=== PATIENT | female | born 1940 | race Caucasian/White ===

== ENCOUNTER 2018-04-24 06:37 | Day surgery (SDC) | payer MEDICARE, OTHER ==
[~2018-04-24] VITALS: Ht 170.2 cm; Wt 84.2 kg
[2018-04-24 07:05] VITALS: BP 142/57
[2018-04-24] MEDS ORDERED: LIDOcaine 1% 30ml preserv. free vial IJ ONE (07:05)
[2018-04-24] MEDS ORDERED: MIDAZolam 5mg/5ml vial IV PRN (07:05)
[2018-04-24] MEDS ORDERED: normal saline 1000ml 1,000 ML IV SCH (07:10)
[2018-04-24] MEDS ORDERED: LIDOcaine 1% 30ml preserv. free vial SQ ONE (07:35)
[2018-04-24] MEDS ORDERED: FURO-150 PO (07:45)
[2018-04-24] MEDS ORDERED: CARV-50 PO (07:45)
[2018-04-24] MEDS ORDERED: ASPI81TA52 PO (07:45)
[2018-04-24] MEDS ORDERED: LEVO50TA8 PO (07:45)
[2018-04-24] MEDS ORDERED: RANI150T44 PO (07:45)
[2018-04-24] MEDS ORDERED: HYDR200T84 PO (07:45)
[2018-04-24] MEDS ORDERED: LOSA25TA96 PO (07:45)
[2018-04-24 07:52] LABS: ALANINE AMINOTRANSFERASE 13 U/L (12-78); ALBUMIN 1.6 G/DL (3.4-5.0); ALBUMIN/GLOBULIN RATIO 0.4 (1.1-1.5); ALKALINE PHOSPHATASE 106 IU/L (46-116); ANION GAP 10 (8-16); ASPARTATE AMINO TRANSFERASE 14 U/L (10-37); BILIRUBIN,TOTAL 0.3 MG/DL (0.1-1.0); BLOOD UREA NITROGEN 33 MG/DL (7-18); BUN/CREATININE RATIO 15.8 (6.6-38.0); CALCIUM 8.5 MG/DL (8.5-10.1); CHLORIDE 103 MMOL/L (99-107); CREATININE 2.09 MG/DL (0.40-0.90); GLUCOSE 81 MG/DL (70-104); POTASSIUM 3.8 MMOL/L (3.5-5.1); SODIUM 139 MMOL/L (135-145); TOTAL CARBON DIOXIDE 26.5 MMOL/L (24-32); TOTAL PROTEIN 5.7 G/DL (6.4-8.2); eGFR 23 ML/MIN
[2018-04-24 08:00] LABS: PARTIAL THROMBOPLASTIN TIME 29 SECONDS (22-32); PROTHROMBIN TIME 10.7 SECONDS (9.0-12.0)
[2018-04-24 08:49] LABS: BASOPHILS % (AUTO) 0.2 % (0-1); EOSINOPHILS # (AUTO) 0.3 X10'3 (0-0.9); EOSINOPHILS % (AUTO) 2.2 % (0-6); HEMATOCRIT 23.6 % (35.0-45.0); LYMPHOCYTES # (AUTO) 1.2 X10'3 (1.1-4.8); LYMPHOCYTES % (AUTO) 9.6 % (21-51); MEAN CORPUSCULAR HEMOGLOBIN 29.2 PG (27.0-31.0); MEAN CORPUSCULAR HGB CONC 33.9 % (33.0-36.5); MEAN CORPUSCULAR VOLUME 86.2 FL (78-98); MONOCYTES % (AUTO) 7.9 % (2-12); NEUTROPHILS # (AUTO) 9.6 X10'3 (1.8-7.7); NEUTROPHILS % (AUTO) 80.1 % (42-75); RED BLOOD COUNT 2.73 X10'6 (4.20-5.60); RED CELL DISTRIBUTION WIDTH 15.9 % (11.5-14.5)
[2018-04-24 09:19] LABS: WHITE BLOOD COUNT 7.1 X10'3 (4.5-11.0)
[2018-04-24 09:20] LABS: MEAN PLATELET VOLUME 7.5 FL (7.4-10.4); PLATELET COUNT 218 X10'3 (140-440)
[2018-04-24 11:23] LABS: PLATELET FUNCTION (ADP) 144 SECONDS (63-104)
== END 2018-04-24 11:45 | disposition home or self-care (01) ==
LOC: SSTAY O 06:37
PROVIDERS: ATTEND Internal Medicine Critical Care Medicine
DX: N18.3 Chronic kidney disease, stage 3 (moderate) (principal); Z53.8 Procedure and treatment not carried out for other reasons; E55.9 Vitamin D deficiency, unspecified; I50.9 Heart failure, unspecified; M19.90 Unspecified osteoarthritis, unspecified site; E03.9 Hypothyroidism, unspecified; Z98.890 Other specified postprocedural states; Z98.41 Cataract extraction status, right eye; Z98.42 Cataract extraction status, left eye; Z79.899 Other long term (current) drug therapy; Z79.82 Long term (current) use of aspirin
CPT/HCPCS: 36415; 80053; 85025; 85576; 85610; 85730; 86885; 86900; 86901; 86920; J7030; J2250; J3490

== ENCOUNTER 2018-04-26 05:48 | Day surgery (SDC) | payer MEDICARE, OTHER ==
[2018-04-26] VITALS (16 sets, daily range): BP systolic 113–148; BP diastolic 31–85
[~2018-04-26] VITALS: Ht 170.2 cm; Wt 84.3 kg
[~2018-04-26 05:48] MED LIST: ASPI81TA52 PO; CARV-50 PO; FURO-150 PO; HYDR200T84 PO; LEVO50TA8 PO; LOSA25TA96 PO; RANI150T44 PO
[2018-04-26] MEDS ORDERED: DESMOPRESSIN IV ONE (06:00)
[2018-04-26] MEDS ORDERED: NORMAL SALINE IV ONE (06:00)
[2018-04-26] MEDS ORDERED: MIDAZolam 5mg/5ml vial IV ONE (06:35)
[2018-04-26] MEDS ORDERED: normal saline 1000ml 1,000 ML IV SCH (06:40)
[2018-04-26] MEDS ORDERED: LIDOcaine 1% (10mg/ml)/PF 5ml amp IJ ONE (07:15)
[2018-04-26 09:12] LABS: HEMATOCRIT 22.8 % (35.0-45.0); HEMOGLOBIN 7.7 g/dl (12.0-16.0); MEAN CORPUSCULAR HEMOGLOBIN 28.9 PG (27.0-31.0); MEAN CORPUSCULAR HGB CONC 33.8 % (33.0-36.5); MEAN CORPUSCULAR VOLUME 85.6 FL (78-98); MEAN PLATELET VOLUME 8.2 FL (7.4-10.4); PLATELET COUNT 208 X10'3 (140-440); RED BLOOD COUNT 2.66 X10'6 (4.20-5.60)
[2018-04-26] MEDS ORDERED: acetaminophen w/codeine (30MG) #3 tablet PO PRN (11:05)
[2018-04-26 12:30] LABS: HEMOGLOBIN 7.2 g/dl (12.0-16.0); MEAN CORPUSCULAR HEMOGLOBIN 28.5 PG (27.0-31.0); MEAN CORPUSCULAR HGB CONC 33.3 % (33.0-36.5); MEAN CORPUSCULAR VOLUME 85.8 FL (78-98); MEAN PLATELET VOLUME 7.5 FL (7.4-10.4); PLATELET COUNT 191 X10'3 (140-440); RED BLOOD COUNT 2.53 X10'6 (4.20-5.60); RED CELL DISTRIBUTION WIDTH 16.4 % (11.5-14.5); WHITE BLOOD COUNT 5.1 X10'3 (4.5-11.0)
[2018-04-26 12:34] LABS: HEMATOCRIT 21.7 % (35.0-45.0)
[2018-04-26 15:17] LABS: HEMOGLOBIN 7.1 g/dl (12.0-16.0); MEAN CORPUSCULAR HEMOGLOBIN 28.9 PG (27.0-31.0); MEAN CORPUSCULAR VOLUME 85.2 FL (78-98); MEAN PLATELET VOLUME 7.8 FL (7.4-10.4); PLATELET COUNT 180 X10'3 (140-440); RED BLOOD COUNT 2.44 X10'6 (4.20-5.60)
[2018-04-26 15:22] LABS: HEMATOCRIT 20.8 % (35.0-45.0)
== END 2018-04-26 16:00 | disposition home or self-care (01) ==
LOC: SSTAY O 05:48
PROVIDERS: ATTEND Internal Medicine Critical Care Medicine
DX: N04.8 Nephrotic syndrome with other morphologic changes (principal); N18.3 Chronic kidney disease, stage 3 (moderate); E55.9 Vitamin D deficiency, unspecified; I50.9 Heart failure, unspecified; M19.90 Unspecified osteoarthritis, unspecified site; E03.9 Hypothyroidism, unspecified; Z98.41 Cataract extraction status, right eye; Z98.42 Cataract extraction status, left eye; Z95.0 Presence of cardiac pacemaker; Z79.82 Long term (current) use of aspirin; Z79.899 Other long term (current) drug therapy; Z98.890 Other specified postprocedural states
CPT/HCPCS: 36415; 50200; 76942; 85027; 85576; 86885; 86900; 86901; 86920; A6449; J2250; J2597; J3490; J7030; 88300; A4620